=== PATIENT | male | born 1995 ===

== ENCOUNTER 2021-01-18 14:24 | Emergency (ER) | payer OTHER ==
[~2021-01-18] VITALS: Ht 177.8 cm; Wt 165.0 kg
[2021-01-18] MEDS ORDERED: AMOX-422 PO (14:34)
[2021-01-18] MEDS ORDERED: TETanus/Pertussis (Acell)/Diphther VAC/PF (Tdap-Adult) 0.5ml syringe IMVAC ONE (14:35)
[2021-01-18 14:38] VITALS: BP 159/91
== END 2021-01-18 14:53 | disposition home or self-care (01) ==
LOC: ER 14:25
DX: S20.224A Contusion of middle back wall of thorax, initial encounter (principal); Z79.2 Long term (current) use of antibiotics; Z20.3 Contact with and (suspected) exposure to rabies; W54.0XXA Bitten by dog, initial encounter; Y93.89 Activity, other specified; Y92.89 Other specified places as the place of occurrence of the external cause; Y99.8 Other external cause status
CPT/HCPCS: 90471; 90715; 99283